=== PATIENT | female | born 1975 | race Caucasian/White ===

== ENCOUNTER 2019-07-12 19:41 | Emergency (ER) | payer OTHER ==
[2019-07-12 19:49] VITALS: BP 155/89; PULSE 79; TEMP 98.2; BMI 25.8
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
== END 2019-07-12 20:29 | disposition home or self-care (01) ==
LOC: JER 19:41 → JERFT 19:41
DX: M54.6 Pain in thoracic spine (principal); V43.52XA Car driver injured in collision with other type car in traffic accident, initial encounter; Y93.89 Activity, other specified; Y92.410 Unspecified street and highway as the place of occurrence of the external cause; I10 Essential (primary) hypertension
CPT/HCPCS: 99283-25; 99284-25

== ENCOUNTER 2020-10-19 05:06 | Day surgery (SDC) | payer OTHER ==
[2020-10-14 15:36] VITALS: BMI 25.0
[2020-10-19] MEDS ORDERED: ONDANSETRON 4 MG/2 ML VIAL ONE ×2 (12:49→16:04)
[2020-10-19] MEDS ORDERED: ONDANSETRON 4 MG/2 ML VIAL IVPUSH ONE ×2 (12:49→16:10)
[2020-10-19 17:36] VITALS: BP 167/83; PULSE 68; TEMP 96
== END 2020-10-19 18:10 | disposition home or self-care (01) ==
LOC: JRADIR 05:06
PROVIDERS: ATTEND Internal Medicine Nephrology
PROC: 0TB03ZX Excision of Right Kidney, Percutaneous Approach, Diagnostic (ICD-10-PCS; principal; 2020-10-19)
DX: N18.9 Chronic kidney disease, unspecified (principal)
CPT/HCPCS: 50200; 88300-TC; 88329

== ENCOUNTER 2021-10-28 15:09 | Emergency (ER) | payer OTHER ==
[2021-10-28 15:14] VITALS: BP 148/82; PULSE 94; TEMP 98.3; BMI 28.6
[2021-10-28] MEDS ORDERED: LIDOCAINE 5% TOPICAL PATCH TP ONE (15:54)
[2021-10-28] MEDS ORDERED: diazePAM 5 MG TABLET PO ONE (15:54)
[2021-10-28] MEDS ORDERED: ACETAMINOPHEN 500 MG TABLET (FP) PO ONE (15:54)
[2021-10-28] MEDS ORDERED: LIDOCAINE 5% TOPICAL PATCH ONE (16:05)
[2021-10-28] MEDS ORDERED: ACETAMINOPHEN 500 MG TABLET (FP) ONE (16:05)
[2021-10-28] MEDS ORDERED: diazePAM 5 MG TABLET ONE (16:06)
[2021-10-28] MEDS ORDERED: LIDOCAINE PATCH REMOVAL MC ONE (22:00)
== END 2021-10-28 17:23 | disposition home or self-care (01) ==
LOC: JERFT 15:09
DX: M54.41 Lumbago with sciatica, right side (principal)
CPT/HCPCS: 99283-25

== ENCOUNTER 2023-08-02 04:09 | Day surgery (SDC) | payer OTHER ==
[2023-08-01 12:26] VITALS: BMI 28.9
[2023-08-02] MEDS ORDERED: BUPIVACAINE HCL/PF 0.5% (5MG/ML) 10 ML VIAL ONE (07:26)
[2023-08-02] MEDS ORDERED: ROCURONIUM BROMIDE 50 MG/5 ML SYRINGE ONE (07:53)
[2023-08-02] MEDS ORDERED: PROPOFOL 20 ML ONE (07:53)
[2023-08-02] MEDS ORDERED: FENTANYL CITRATE/PF 50 MCG/ML VIAL ONE ×3 (07:53→09:18)
[2023-08-02] MEDS ORDERED: MIDAZOLAM HCL 2 MG/2 ML SINGLE DOSE VIAL ONE (07:53)
[2023-08-02] MEDS ORDERED: ceFAZolin SODIUM 1 GM VIAL ONE (07:54)
[2023-08-02] MEDS ORDERED: SODIUM CHLORIDE 0.9% P/F 10 ML VIAL IJ ONE (07:55)
[2023-08-02] MEDS ORDERED: LIDOCAINE HCL/PF 2% SDV 5ML VIAL ONE (08:04)
[2023-08-02] MEDS ORDERED: ceFAZolin SODIUM 1 GM VIAL IVPB ONE (08:08)
[2023-08-02] MEDS ORDERED: ONDANSETRON 4 MG/2 ML VIAL ONE (08:17)
[2023-08-02] MEDS ORDERED: DEXAMETHASONE SOD PHOSPHATE 4 MG/1 ML VIAL ONE (08:17)
[2023-08-02] MEDS ORDERED: METOCLOPRAMIDE HCL INJECTION 10 MG/2 ML VIAL ONE (08:19)
[2023-08-02] MEDS ORDERED: BUPIVACAINE HCL/PF 0.5% (5MG/ML) 10 ML VIAL IJ ONE (08:22)
[2023-08-02] MEDS ORDERED: SUGAMMADEX SODIUM 200 MG/2 ML VIAL ONE (08:53)
[2023-08-02] MEDS ORDERED: hydrALAZINE HCL 20 MG/ML VIAL ONE (09:02)
[2023-08-02] MEDS ORDERED: oxyCODONE HCL 5 MG TABLET PO PRN (09:13)
[2023-08-02] MEDS ORDERED: ONDANSETRON 4 MG/2 ML VIAL IVPUSH PRN (09:13)
[2023-08-02] MEDS ORDERED: PROMETHAZINE HCL 25 MG/1 ML VIAL IVPB PRN (09:13)
[2023-08-02] MEDS ORDERED: SODIUM CHLORIDE 1,000 ML IV SCH (09:15)
[2023-08-02] MEDS ORDERED: ACETAMINOPHEN 325 MG TABLET (FP) ONE (11:08)
[2023-08-02] MEDS ORDERED: ACETAMINOPHEN 500 MG TABLET (FP) ONE (11:09)
[2023-08-02] MEDS ORDERED: ACETAMINOPHEN 500 MG TABLET (FP) PO ONE ×2 (11:20→12:15)
[2023-08-02 13:38] VITALS: BP 124/71; PULSE 76; RESP 18; TEMP 98
== END 2023-08-02 13:38 | disposition home or self-care (01) ==
LOC: JASU-SURG 04:09
PROVIDERS: ATTEND Surgery
PROC: 0WHG43Z Insertion of Infusion Device into Peritoneal Cavity, Percutaneous Endoscopic Approach (ICD-10-PCS; principal; 2023-08-02 08:00)
DX: I12.0 Hypertensive chronic kidney disease with stage 5 chronic kidney disease or end stage renal disease (principal); N18.6 End stage renal disease; Z99.2 Dependence on renal dialysis
CPT/HCPCS: 81025; 94760; C1750; J1644